=== PATIENT | male | born 1965 | race Caucasian/White ===

== ENCOUNTER → 2017-04-24 | Outpatient (CLI) | payer OTHER ==
--- NOTE | 2017-04-24 08:13 | CT ---
EXAMINATION TYPE: CT abdomen pelvis w con DATE OF EXAM: 04/24/2017 7:24 AM COMPARISON: NONE HISTORY: Abdominal or pelvic mass CT DLP: 1567 mGycm CONTRAST: CT scan of the abdomen and pelvis is performed with Oral Contrast and with IV Contrast, patient injec rosalee with 100 ml mL of Omnipaque 300. FINDINGS: LUNG BASES-: No visible nodule. No infiltrate. Mild cardiomegaly. Small sliding-type hiatal hernia. LIVER/GB: No calcified gallstones. 1.4 cm cyst adjacent to the gallbladder fossa. Biliary tree is o f normal caliber. PANCREAS: No inflammation. No distinct mass. SPLEEN: No splenic enlargement. No lesion seen. ADRENALS: No nodule. No thickening. KIDNEYS/BLADDER: No hydronephrosis. No nephrolithiasis. No disctinct renal mass. Urinary bladder g rossly unremarkable. BOWEL: Nonvisualization of the appendix. Normal bowel caliber. No inflammation. GENITAL ORGANS: No gross abnormality. LYMPH NODES: No greater than 1cm abdominal or pelvic lymph nodes are appreciated. AORTA: No significant abnormality. OSSEOUS STRUCTURES: Degenerative changes seen throughout the thoracolumbar spine. OTHER: No significant additional abnormality is seen. IMPRESSION: 1. No evidence for abdominopelvic mass. 2. Small hepatic cysts. 3. Small hiatal hernia.
== END | disposition home or self-care (01) ==
LOC: RADCTMAIN 06:54
PROVIDERS: ATTEND Nurse Practitioner Women's Health
DX: K76.89 Other specified diseases of liver (principal); K44.9 Diaphragmatic hernia without obstruction or gangrene; R10.84 Generalized abdominal pain
CPT/HCPCS: 74177; Q9967

== ENCOUNTER → 2017-06-09 | Outpatient (CLI) | payer OTHER | END | disposition home or self-care (01) | LOC: LABPAT 10:22 | PROVIDERS: ATTEND Anesthesiology | DX: Z01.810 Encounter for preprocedural cardiovascular examination (principal); K42.9 Umbilical hernia without obstruction or gangrene; K43.2 Incisional hernia without obstruction or gangrene | CPT/HCPCS: 93005 ==

== ENCOUNTER 2017-06-11 09:25 | Day surgery (SDC) | payer OTHER ==
[2017-06-06 17:22] VITALS: BMI 30.1
[~2017-06-11 09:25] MED LIST: DEXAMETHASONE SOD PHOSPHATE 10 MG/ML 1 ML VIAL IV ONE; HEPARIN SODIUM,PORCINE 5,000 UNIT/ML 1 ML VIAL SQ ONE; LACTATED RINGERS 1,000 ML IV SCH; MIDAZOLAM 2 MG/2 ML VIAL IV PRN; ONDANSETRON 4 MG/2 ML VIAL IVP ONE; SCOPOLAMINE 1.5MG/72HR PATCH TRANSDERM ONE; ceFAZolin 2 GM in SODIUM CHLORIDE 0.9% 100 ML IVPB ONE
[2017-06-11] MEDS ORDERED: LIDOCAINE 1% 20 ML VIAL (10MG/ML) FOR IV START INTRADERMA ONE (10:27)
--- NOTE | 2017-06-11 11:11 | P.GSHP ---
History of Present Illness H&P Date: 06/11/17 Chief Complaint: Right lower quadrant Incisional and umbilical hernia This a 52-year-old male who presents today for laparoscopic robotic-assisted repair of a right lower quadrant incisional hernia and umbilical hernia. Patient is a previous history of open appendectomy. He is also a small incisional hernia at his appendectomy scar. He also has a small umbilical hernia. Past Medical History Additional Past Medical History / Comment(s): ALLERGIES. HAS INC AND UMBILICAL HERNIAS. VARICOSE VEINS. History of Any Multi-Drug Resistant Organisms: None Reported Past Surgical History: Appendectomy, Orthopedic Surgery Additional Past Surgical History / Comment(s): RT SHOULDER SURG. COLONOSCOPY. Past Anesthesia/Blood Transfusion Reactions: No Reported Reaction Smoking Status: Current every day smoker - Past Family History Mother Family Medical History: Cancer Brother(s) Family Medical History: Cancer Medications and Allergies Home Medications Medication Instructions Recorded Confirmed Type Acetaminophen [Tylenol Extra 1,000 mg PO Q4-6H PRN 06/06/17 06/11/17 History Strength] Cetirizine HCl [Zyrtec] 10 mg PO DAILY PRN 06/06/17 06/06/17 History Allergies Allergy/AdvReac Type Severity Reaction Status Date / Time Sulfa (Sulfonamide Allergy Rash/Hives Verified 06/06/17 16:55 Antibiotics) VICRYL SUTURES Allergy INCISION Uncoded 06/09/17 12:36 FORMED WHITE CYSTS Surgical - Exam Vital Signs Temp Pulse Resp BP Pulse Ox 98 F 74 18 126/79 96 06/11/17 10:12 06/11/17 10:12 06/11/17 10:12 06/11/17 10:12 06/11/17 10:12 - General well developed, no distress - Eyes PERRL - ENT normal pinna - Neck no masses - Respiratory normal expansion - Cardiovascular Rhythm: regular - Abdomen Right lower quadrant incisional hernia measuring approximately 3 cm diameter., Small reducible umbilical hernia Abdomen: soft, non tender Assessment and Plan Plan: Incisional hernia right lower quadrant, local hernia we'll perform laparoscopic robotic-assisted repair.
[2017-06-11] MEDS ORDERED: LIDOCAINE 1%-EPI 1:100,000 20 ML VIAL SQ ONE ×2 (11:40→11:59)
[2017-06-11] MEDS ORDERED: ROCURONIUM BROMIDE 10 MG/ML 10 ML VIAL IV ONE (11:41)
[2017-06-11] MEDS ORDERED: fentaNYL (PF) 50 MCG/ML 2 ML AMP ONE (11:41)
[2017-06-11] MEDS ORDERED: GLYCOPYRROLATE 0.2 MG/ML 2 ML VIAL ONE (11:41)
[2017-06-11] MEDS ORDERED: SUCCINYLCHOLINE CHLORIDE 100 MG/5 ML SYR IV ONE (11:41)
[2017-06-11] MEDS ORDERED: HYDROmorphone (PF) 1 MG/ML ONE (11:41)
[2017-06-11] MEDS ORDERED: NEOSTIGMINE 1 MG/ML 10 ML VIAL ONE (11:41)
[2017-06-11] MEDS ORDERED: KETOROLAC 30 MG/ML 1 ML VIAL ONE (11:41)
[2017-06-11] MEDS ORDERED: MIDAZOLAM 2 MG/2 ML VIAL ONE (11:41)
[2017-06-11] MEDS ORDERED: PROPOFOL 10 MG/ML 20 ML VIAL IV ONE (11:41)
[2017-06-11] MEDS ORDERED: LIDOCAINE 1% INJ 10MG/ML (20 ML MDV) ONE (11:41)
[2017-06-11] MEDS ORDERED: ePHEDrine 50 MG/ML 1 ML AMP ONE (11:41)
[2017-06-11] MEDS ORDERED: PHENYLEPHRINE-0.9% NACL SYG 1 MG/10 ML SYRINGE ONE (11:41)
[2017-06-11] MEDS ORDERED: LACTATED RINGERS 1,000 ML IV ONE (12:39)
[2017-06-11 13:16] VITALS: TEMP 97
[2017-06-11] MEDS: HYDROmorphone 1 MG/ML 1 ML SYRINGE IVP PRN ×2 (13:36→13:43)
[2017-06-11 14:03] VITALS: RESP 18
[2017-06-11] MEDS ORDERED: HYDROcodone/APAP 7.5-325MG 1 EACH TAB PO ONE (14:30)
--- NOTE | 2017-06-11 14:41 | P.OP ---
Date of Procedure: 06/11/17 Preoperative Diagnosis: Incisional hernia Umbilical hernia Postoperative Diagnosis: Incisional hernia Umbilical hernia Adhesions Procedure(s) Performed: Laparoscopic robotic system repair of umbilical hernia, incisional hernia and labs have place of adhesions. Implants: Anesthesia: RANJITA Surgeon: Enrique Petit Estimated Blood Loss (ml): 5 Pathology: none sent Condition: stable Disposition: PACU Indications for Procedure: Operative Findings: Description of Procedure: Patient's placed the operative table in the supine position. He received general anesthesia. His abdomen was then prepped and draped usual fashion. The patient had this umbilical hernia and a incisional hernia located right lower quadrant from previous appendectomy. The left upper quadrant presented with a 5 mm TROCAR under direct visitation in the abdomen was inflated after adequate insufflation the laparoscope was placed the peritoneal cavity. Next a robotic 8 over trochars placed left lower quadrant and a 1200 trocar was placed in left lateral position and the original 5 mm trocar was exchanged for an 8 mm robotic trocar. The patient was undocked the robot. The patient position in the left side up position. The adhesions over the right lower quadrant hernia were lysed using hook cautery and then the fascial repair was performed using OV lock suture. The incisional hernia repair was buttressed with Turkish light ST mesh. 1170 around mesh was secured with 2 OV lock suture. Next the umbilical hernia was visualized. The umbilical hernia was closed using OV lock suture. And then a ventral ST mesh was secured over top apparent secured with 2 OV lock suture. The patient was then undocked from the robot. The needles were retrieved. The fascia of the 12 mm trocar site was closed with 0 Ethibond suture. Skin was closed interrupted 3-0 Monocryl suture. Dermabond was applied. Patient top she will was sent to recovery in stable condition.
[2017-06-11 14:42] VITALS: BP 119/69; PULSE 95
== END 2017-06-11 15:32 | disposition home or self-care (01) ==
LOC: OR 09:25
PROVIDERS: ATTEND Surgery
DX: K43.2 Incisional hernia without obstruction or gangrene (principal); K42.9 Umbilical hernia without obstruction or gangrene; K66.0 Peritoneal adhesions (postprocedural) (postinfection); F17.200 Nicotine dependence, unspecified, uncomplicated; Z88.2 Allergy status to sulfonamides; Z88.8 Allergy status to other drugs, medicaments and biological substances
CPT/HCPCS: 49652; 49654; S2900; 36415; 86850; 86900; 86901

== ENCOUNTER 2022-05-03 09:32 | Day surgery (SDC) | payer OTHER ==
[2022-05-01 16:06] VITALS: BMI 33.0
[~2022-05-03 09:32] MED LIST changes: -DEXAMETHASONE SOD PHOSPHATE 10 MG/ML 1 ML VIAL IV ONE; -HEPARIN SODIUM,PORCINE 5,000 UNIT/ML 1 ML VIAL SQ ONE; -MIDAZOLAM 2 MG/2 ML VIAL IV PRN; -ONDANSETRON 4 MG/2 ML VIAL IVP ONE; -SCOPOLAMINE 1.5MG/72HR PATCH TRANSDERM ONE; -ceFAZolin 2 GM in SODIUM CHLORIDE 0.9% 100 ML IVPB ONE
[2022-05-03 09:51] VITALS: RESP 16; TEMP 96.7
[2022-05-03] MEDS ORDERED: PROPOFOL 10 MG/ML 20 ML VIAL IV ONE (10:49)
--- NOTE | 2022-05-03 11:13 | P.PCN ---
Date of Procedure: 05/03/22 Procedure(s) Performed: BRIEF HISTORY: Patient is a 57-year-old pleasant white male scheduled for an elective colonoscopy as a part of screening for colon cancer and family history of colon cancer in his brother Was diagnosed at age 60. PROCEDURE PERFORMED: Colonoscopy. PREOPERATIVE DIAGNOSIS: Screening for colon cancer and family history of colon cancer.. IV sedation per Anesthesia. PROCEDURE: After informed consent was obtained, the patient, was brought into the endoscopy unit. IV sedation was administered by Anesthesia under continuous monitoring. Digital rectal examination was normal. Initially the Olympus CF-160 flexible video colonoscope was then inserted in the rectum, gradually advanced into the cecum without any difficulty. Careful examination was performed as the scope was gradually being withdrawn. Ileocecal valve and the appendiceal orifice were visualized and appeared normal. Prep was excellent. Mucosa of the cecum, ascending colon, transverse colon, descending colon, sigmoid colon, and rectum appeared normal. Retroflexion was performed in the rectum and no lesions were seen. The patient tolerated the procedure well. IMPRESSION: Normal-appearing colon from rectum to cecum with no evidence of of colorectal neoplasia . RECOMMENDATIONS: Findings of this examination were discussed with the patient as well as his family. He was advised to have a repeat screening colonoscopy in 5 years from now because of the family history of colon cancer.
[2022-05-03 12:03] VITALS: BP 108/69; PULSE 72
== END 2022-05-03 12:24 ==
LOC: ORWHC2ENDO 09:32
PROVIDERS: ATTEND Internal Medicine Gastroenterology
DX: Z12.11 Encounter for screening for malignant neoplasm of colon (principal); Z80.0 Family history of malignant neoplasm of digestive organs; K21.9 Gastro-esophageal reflux disease without esophagitis; Z87.891 Personal history of nicotine dependence; Z79.899 Other long term (current) drug therapy; Z88.2 Allergy status to sulfonamides; Z90.49 Acquired absence of other specified parts of digestive tract; Z98.890 Other specified postprocedural states
CPT/HCPCS: J2704; G0105

== ENCOUNTER → 2023-02-13 | Outpatient (CLI) | payer OTHER ==
[2023-02-13 08:14] VITALS: BP 142/86; PULSE 86; RESP 18; TEMP 98
--- NOTE | 2023-02-13 15:49 | P.PAINPG ---
PQRS Measure Charge Sheet Comment: HISTORY OF PRESENT ILLNESS: 57 yr old male as a referral from Dr Guevara presents today w severe and chronic LBP secondary to stenosis, DDD, spondylosis and facet arthropathy without myelopathy for evaluation. Pt states pain level is at 7 /10 in intensity, constant, localized in the lower lumbar spine, sharp, stabbing in character w shooting pain towards the BLEs, R>L. Pain is provoked by bending, twisting, standing/ walking for periods of 25 min or more. Pain is alleviated by medications, topicals, slightly by injections in the past, PT in 2019 which was ineffective, home stretching regimen in the mornings as tolerated, hot baths, repositioning and rest. PMH: Varicosities, OA PSH: Colonoscopy (2021), R Shoulder Surgery, LESIs SH: Daily tobacco use, No ETOH abuse, No illicit drug use FH: Mo- CA. Bro- CA All: See list Meds: See list REVIEW OF ORGAN SYSTEMS: CONSTITUTIONAL: No fevers or chills. No recent weight loss. NEUROLOGICAL: + numbness and tingling along the distal extremities. No seizure disorders or headaches. MUSCULOSKELETAL: + pain PSYCHIATRIC: Denies current depression or suicidal thoughts. Physical Examinations : Constitutional : Cooperative , not in acute distress . Neurologic : Cranial nerve II to XII intact. No focal neurological deficits. Psychiatric : alert & oriented x 3. Matching mood & appropriate affect. Judgment & insight intact. Musculoskeletal : Cervical Spine Motor strength in the deltoid and biceps: Normal right side. Normal Left side Motor strength biceps and the wrist extensors: Normal right side . Normal left side Motor strength in the triceps muscle: Normal right side. Normal left side Deep tendon reflexes: Normal at the biceps. Normal at Brachioradialis. Normal at triceps Vertebral body tenderness to deep palpation over Cervical facet loading test: positive bilaterally Spurling test: positive bilaterally Neck distraction test: positive bilaterally Kan sign: positive bilaterally Lumbar spine Motor strength lower extremities ,thigh and legs 5/5 Right side , 5/5 Left side Deep tendon reflexes : Normal Knee Jerk. Normal Ankle Jerk Vertebral body tenderness over L4 Lumbar facet Loading Test: positive Right / positive Left Range of motion of the lumbar spine Flexion 30 degrees, extension 10 degrees Straight Leg Raise test: Left/ Right positive at degree Diana test: positive right / positive left. Severe tenderness over the Sacroiliac joint on the Right / Left sides Oneidalen test: positive bilaterally Seated flexion test: positive bilaterally. Sacral spine : Severe tenderness over the Sacroiliac joint: right side / left side Range of motion: Flexion of the lumbar spine <60 degrees Range of motion: Extension of the lumbar spine <20 degrees Gaenslen's Test positive Gaston's Test positive Diana test: positive right side / left side Thigh Thrust Test Sacral Thrust Test Imaging: MRI without contrast of the lumbar spine from 01/16/23 reviewed Assessment/ Plan : Lumbar DDD, lumbar disc bulges, lumbar stenosis Recommendation of BL TFESI L4-L5 #1. May need a series of injections, up ton 3 within a 6 mo period, for optimal pain relief. Risks, benefits of procedure discussed and patient verbalized understanding. Admits to aspirin or anti- coagulant use or medical history of diabetes. Protocol for discontinuation/ continuation of medications shimon procedure discussed. All questions answered. I have spent greater than 30 minutes on patient care today. Dr Buckley was available by phone for the evaluation of this patient. The time was used to review the medical records including relevant urine studies and Prescription history (MAPs), review of the available imaging, evaluation and examination of the patient, coordination of care with the medical staff and if applicable referring physicians, as well as creation of the medical record PQRS Narrative: Smoking Status Current every day smoker Home Medications: Ambulatory Orders Cetirizine HCl [Zyrtec] 10 mg PO DAILY PRN 06/06/17 Controlled Substance Measures - Controlled Substance Measures Is patient prescribed a controlled substance at discharge?: No
== END ==
LOC: PNWHC3 07:25
PROVIDERS: ATTEND Specialist
DX: M48.07 Spinal stenosis, lumbosacral region (principal); M19.90 Unspecified osteoarthritis, unspecified site; M47.816 Spondylosis without myelopathy or radiculopathy, lumbar region; M48.061 Spinal stenosis, lumbar region without neurogenic claudication; M51.36 Other intervertebral disc degeneration, lumbar region; M51.26 Other intervertebral disc displacement, lumbar region; F17.200 Nicotine dependence, unspecified, uncomplicated; Z88.2 Allergy status to sulfonamides; Z91.048 Other nonmedicinal substance allergy status
CPT/HCPCS: 99211

== ENCOUNTER 2023-03-20 09:06 | Day surgery (SDC) | payer OTHER ==
[~2023-03-20 09:06] MED LIST changes: +LIDOCAINE 1% (10MG/ML) FOR IV START INTRADERMA PRN
[2023-03-20 09:39] VITALS: RESP 16; TEMP 97.3
[2023-03-20] MEDS ORDERED: methylPREDNISolone ACETATE 80 MG/ML 1 ML VIAL ONE (10:00)
[2023-03-20] MEDS ORDERED: MIDAZOLAM 2 MG/2 ML VIAL ONE (10:00)
[2023-03-20] MEDS ORDERED: IOPAMIDOL M200 10 ML VIAL ONE (10:00)
[2023-03-20] MEDS ORDERED: fentaNYL (PF) 50 MCG/ML 2 ML AMP ONE (10:00)
--- NOTE | 2023-03-20 10:20 | P.PCN ---
Date of Procedure: 03/20/23 Procedure(s) Performed: PREOPERATIVE DIAGNOSIS: 1-Lumbar radiculopathy . 2-lumbar spinal stenosis 3- lumbar spondylosis with lumbar facet arthropathy without myelopathy POSTOPERATIVE DIAGNOSIS: 1-lumbar radiculopathy. 2-lumbar spinal stenosis 3- lumbar spondylosis with facet arthropathy without myelopathy PROCEDURE 1. Transforaminal epidural steroid injection under fluoroscopic guidance at bilateral L4-5 level. (Fluoroscopy images stored on file in the radiology Department ) 2. Lumbar epidurogram . ANESTHESIA: Local with 1% lidocaine 3 ml , moderate sedation with intravenous Versed 2 mg and fentanyle 100 micrograms. Sedation start time : 1005 . Sedation. stop time : 1017 . EBL: Minimal PROCEDURE INDICATION: The patient with low back pain and radiculopathy symptoms unresponsive to conservative treatment. PROCEDURE DESCRIPTION / TECHNIQUE: The patient was seen and identified in the preoperative area. Risks, benefits, complications, and alternatives were discussed with the patient. The patient agreed to proceed with the procedure and signed the consent. IV was started, and vital signs were stable. Patient was taken to the OR and time out was completed. The patient was placed in the prone position on procedure table and a pillow was placed under the abdomen to reduce lumbar lordosis. The lumbosacral area was prepped and draped in the usual sterile fashion. Critical pause was taken. Vital signs were closely monitored during the procedure. Conscious sedation was used during the procedure to decrease patient s anxiety. Using oblique fluoroscopy, the chin of the `Chiragy dog at right L4-5 level was identified, and the skin and deeper tissues just below was localized with 1% lidocaine. Subsequently, a 22-gauge 3.5-inch spinal needle was advanced under a tunneled view fluoroscopic guidance just underneath the chin of the `Chiragy dog at the right L4-5 Under lateral fluoroscopy, the needle was then advanced to the posterior border of the interforaminal space. After negative aspiration of CSF and blood and with no paresthesias, 1 mL Isovue 200 contrast dye was injected excellent epidurogram and outlining of the nerve root Subsequently, 3 mL of block solution containing 40 mg Depo-Medrol and 2 mL of 0.9% normal saline PF was injected. Needle was removed and the same procedure was repeated at the left L4-5 level. At the end of the procedure, skin was cleansed, and bandages were applied. COMPLICATIONS:none DISPOSITION / PLANS: The patient was placed in a supine position and transferred to the recovery area in a stable condition for observation. There was no evidence of lower extremity motor or sensory deficit after the procedure. Patient was discharged from the recovery room after meeting discharge criteria. Home discharge instructions were given to the patient by the staff. The patient was reexamined prior to discharge.
[2023-03-20] MEDS ORDERED: IV FLUID CONTINUATION 700 ML IV ONE (10:21)
--- NOTE | 2023-03-20 10:27 | FL ---
Intraoperative/procedural fluoroscopic services were provided for transforaminal lumbar epidural ster oid injection. Total fluoroscopy time is 8 seconds with a total of 2 submitted images to PACS. Total DAP [id number]. Please see the operative note for further details.
[2023-03-20 10:41] VITALS: BP 131/83; PULSE 81
== END 2023-03-20 10:52 | disposition home or self-care (01) ==
LOC: ORPAIN 09:06
PROVIDERS: ATTEND Specialist
DX: M47.26 Other spondylosis with radiculopathy, lumbar region (principal); M48.061 Spinal stenosis, lumbar region without neurogenic claudication; Z88.2 Allergy status to sulfonamides; Z88.8 Allergy status to other drugs, medicaments and biological substances; Z79.82 Long term (current) use of aspirin
CPT/HCPCS: 64483; 99152; J2250; J1040; J3010; Q9966

== ENCOUNTER → 2023-04-14 | Outpatient (CLI) | payer OTHER ==
[2023-04-14 07:58] VITALS: BP 125/85; PULSE 78; RESP 18; TEMP 98
--- NOTE | 2023-04-14 13:31 | P.PAINPG ---
PQRS Measure Charge Sheet Comment: A 58 yr old female with a history of severe and chronic LBP x 15 yrs secondary to lumbar DDD and spondylosis with facet arthropathy without myelopathy presents today for evaluation s/p BL TFESI L4-L5. Pt states he experienced he 60% pain relief x 5 days s/p procedure. Pain level is provoked at 7/10 in intensity, constant, localized in the lumbar spine, stabbing in character w shooting towards the LLE> R. Pain is provoked by climbing. Pain is alleviated with PT 4 yrs ago, use of a massage gun at home, heat, medications, topical, reclining, repositioning and rest. Interventional pain procedures completed include BL TFESI L4-5 Patient is currently on Tyl, Ibu, Salon Pas patches Patient denies any side effects of the medication(s), denies excessive drowsiness or sleepiness, denies suicidal ideation and reports that the current pain medication is helping to control the pain and improve activities of daily living. Patient denies any motor or sensory deficits. Patient denies any fever or night sweats, denies any change in the bowel movements or urination. Physical Examination: -Constitutional: Cooperative. Not in acute distress . - Neurologic: Cranial nerve II to XII intact. No focal neurological deficits. - Psychatric: Alert & oriented x 3. Matching mood & appropriate affect. Judgment and insight intact. - Musculoskeletal: Cervical spine: Muscle bulk/ tone/ strength in the bilateral upper extremities normal Vertebral body tenderness to palpation over Spurling test positive Distraction test positive Facet loading test positive TTP Thoracic spine Muscle bulk / tone/ strength in the bilateral paraspinal muscles normal Vertebral body tender to palpation over Facet loading test positive TTP Lumbar spine: Motor bulk/ tone/ strength lower extremities , thigh and legs : 5/5 Deep tendon reflexes : Normal Knee Jerk. Normal Ankle Jerk . Vertebral body tenderness to palpation over L4 Lumbar Facet Loading Test positive Straight Leg Raise: positive at 30 degrees right side/ left side Gaenslen's Test positive Sacral spine : Severe tenderness over the Sacroiliac joint: right side / left side Range of motion: Flexion of the lumbar spine <60 degrees Range of motion: Extension of the lumbar spine <20 degrees Gaenslen's Test positive right side / left side Diana test: positive right side / left side Thigh Thrust Test positive right side / left side Sacral Thrust Test positive right side / left side Assessment and plan: Chronic LBP secondary to lumbar DDD, spondylosis with facet arthropathy without myelopathy Recommendation of DARBY L4-L5. May need a s series of injections, up to 3 within a 6 mo period, for optimal pain relief. Risks, benefits of procedure discussed and pt verbalized understanding. Admits to anticoagulant use or medical history of diabetes. Protocol for discontinuation/ continuation of medications shimon procedure discussed. All questions answered. I have spent less than 30 minutes on patient care today. Dr Buckley was available by phone for the evaluation of this patient. The time was used to review the medical records including relevant urine studies and Prescription history (MAPs), review of the available imaging, evaluation and examination of the patient, coordination of care with the medical staff and if applicable referring physicians, as well as creation of the medical record PQRS Narrative: Smoking Status Current every day smoker Hx Alcohol Use (MH) Yes: 2 PER DAY Home Medications: Ambulatory Orders Cetirizine HCl [Zyrtec] 10 mg PO DAILY PRN 06/06/17 Ibuprofen [Motrin Ib] 400 mg PO Q6H PRN 03/18/23 Controlled Substance Measures - Controlled Substance Measures Is patient prescribed a controlled substance at discharge?: No
== END ==
LOC: PNWHC3 07:20
PROVIDERS: ATTEND Specialist
DX: M51.36 Other intervertebral disc degeneration, lumbar region (principal); M47.816 Spondylosis without myelopathy or radiculopathy, lumbar region; G89.29 Other chronic pain; F17.200 Nicotine dependence, unspecified, uncomplicated; Z72.89 Other problems related to lifestyle; Z88.2 Allergy status to sulfonamides; Z91.048 Other nonmedicinal substance allergy status
CPT/HCPCS: 99211

== ENCOUNTER → 2023-05-22 | Outpatient (CLI) | payer OTHER ==
[2023-05-22 08:46] VITALS: BP 145/87; PULSE 74; RESP 18; TEMP 98.2
--- NOTE | 2023-05-22 14:59 | P.PAINPG ---
PQRS Measure Charge Sheet Comment: A 58 yr old female with a history of severe and chronic LBP x 15 yrs secondary to lumbar DDD and spondylosis with facet arthropathy without myelopathy presents today for LBP. Pain level is provoked at 7/10 in intensity, constant, localized in the R lumbar spine, achy in character w shooting towards the LLE> R. Pain is provoked by climbing. Pain is alleviated with PT 4 yrs ago, physician guided home stretching daily for the last 4 yrs, use of a massage gun at home, heat, medications, topical, reclining, repositioning and rest. Interventional pain procedures completed include BL TFESI L4-L5 x1 Patient is currently on Tyl, Ibu, Salon Pas patches Patient denies any side effects of the medication(s), denies excessive drowsiness or sleepiness, denies suicidal ideation and reports that the current pain medication is helping to control the pain and improve activities of daily living. Patient denies any motor or sensory deficits. Patient denies any fever or night sweats, denies any change in the bowel movements or urination. Physical Examination: -Constitutional: Cooperative. Not in acute distress . - Neurologic: Cranial nerve II to XII intact. No focal neurological deficits. - Psychatric: Alert & oriented x 3. Matching mood & appropriate affect. Judgment and insight intact. - Musculoskeletal: Cervical spine: Muscle bulk/ tone/ strength in the bilateral upper extremities normal Vertebral body tenderness to palpation over Spurling test positive Distraction test positive Facet loading test positive TTP Thoracic spine Muscle bulk / tone/ strength in the bilateral paraspinal muscles normal Vertebral body tender to palpation over Facet loading test positive TTP Lumbar spine: Motor bulk/ tone/ strength lower extremities , thigh and legs : 5/5 Deep tendon reflexes : Normal Knee Jerk. Normal Ankle Jerk . Vertebral body tenderness to palpation over Diehl Test positive R T12 - L5 Taut bands w twitch response Lumbar Facet Loading Test positive Straight Leg Raise: positive at 30 degrees right side/ left side Gaenslen's Test positive Sacral spine : Severe tenderness over the Sacroiliac joint: right side / left side Range of motion: Flexion of the lumbar spine <60 degrees Range of motion: Extension of the lumbar spine <20 degrees Gaenslen's Test positive right side / left side Diana test: positive right side / left side Thigh Thrust Test positive right side / left side Sacral Thrust Test positive right side / left side Assessment and plan: Chronic LBP secondary to lumbar DDD, spondylosis with facet arthropathy without myelopathy Recommendation of R TPIs T12-L5. May need a series of injections for optimal pain relief. Risks, benefits of procedure discussed and pt verbalized understanding. Admits to anticoagulant use or medical history of diabetes. Protocol for discontinuation/ continuation of medications shimon procedure discussed. Minimal anesthesia provided, if clinically indicated, consisting of Versed and Fentanyl. All questions answered. I have spent less than 30 minutes on patient care today. Dr Buckley was available by phone for the evaluation of this patient. The time was used to review the medical records including relevant urine studies and Prescription history (MAPs), review of the available imaging, evaluation and examination of the patient, coordination of care with the medical staff and if applicable referring physicians, as well as creation of the medical record PQRS Narrative: Smoking Status Current every day smoker Hx Alcohol Use (MH) Yes: 2 PER DAY Home Medications: Ambulatory Orders Cetirizine HCl [Zyrtec] 10 mg PO DAILY PRN 06/06/17 Ibuprofen [Motrin Ib] 400 mg PO Q6H PRN 03/18/23 Controlled Substance Measures - Controlled Substance Measures Is patient prescribed a controlled substance at discharge?: No
== END ==
LOC: PNWHC3 08:12
PROVIDERS: ATTEND Specialist
DX: M51.35 Other intervertebral disc degeneration, thoracolumbar region (principal); M47.815 Spondylosis without myelopathy or radiculopathy, thoracolumbar region; G89.29 Other chronic pain; F17.200 Nicotine dependence, unspecified, uncomplicated; Z88.2 Allergy status to sulfonamides; Z91.09 Other allergy status, other than to drugs and biological substances
CPT/HCPCS: 99211

== ENCOUNTER 2023-06-24 08:29 | Day surgery (SDC) | payer OTHER ==
[2023-06-23 09:16] VITALS: BMI 33.3
[~2023-06-24 08:29] MED LIST changes: -LIDOCAINE 1% (10MG/ML) FOR IV START INTRADERMA PRN
[2023-06-24 08:54] VITALS: TEMP 97.4
[2023-06-24] MEDS ORDERED: methylPREDNISolone ACETATE 80 MG/ML 1 ML VIAL ONE (09:03)
[2023-06-24] MEDS ORDERED: ROPIVACAINE 5 MG/ML 20 ML AMPULE ONE (09:03)
--- NOTE | 2023-06-24 09:09 | P.PCN ---
Date of Procedure: 06/24/23 Procedure(s) Performed: Procedure= trigger point injections lumbar paraspinal muscles bilaterally , 6 on the right side from T12 to L5, Preoperative diagnosis= 1-myofascial pain syndrome lumbar paraspinal muscles 2-lumbar degenerative disc disease 3-lumbar facet arthropathy Postoperative diagnosis=Same as preop Diagnosis . Complication = none Condition= stable Anesthesia= Indication for the procedure= patient complaining of low back pain , examination was positive for multiple trigger point in the lumbar paraspinal muscles right side , and patient diagnosed with myofascial pain syndrome and is here to have trigger point injections Description of the procedure= procedure risk and benefits discussed with the patient, including but not limited, risk of infection and bleeding, and ALLERGIC reaction to the medication and not complete pain relief and patient agreed with the preceding patient taken to the operating room, placed in sitting position or standard monitors applied to the patient then after induction of anesthesia back prepped with chlorhexidine 3 times , then under sterile technique each of the trigger point that was marked in the preop holding area 6 on the right side lumbar paraspinal muscles each one of them injected with the 2 mL of the mixture of ropivacaine 0.5% 12 ML mixed with 80 mg of Depo-Medrol and 2 mL of the mixture injected at each trigger point after negative aspiration, using 25-gauge needle, injection done after negative aspiration under was no paresthesia during the injection patient tolerated the procedure well without any complications and he will follow up in the pain clinic in a few weeks
[2023-06-24 09:11] VITALS: BP 149/77; PULSE 73; RESP 18
== END 2023-06-24 09:34 | disposition home or self-care (01) ==
LOC: ORPAIN 08:29
PROVIDERS: ATTEND Specialist
DX: M79.18 Myalgia, other site (principal); M51.36 Other intervertebral disc degeneration, lumbar region; M47.816 Spondylosis without myelopathy or radiculopathy, lumbar region; Z88.2 Allergy status to sulfonamides
CPT/HCPCS: 20553; J1040; J2795

== ENCOUNTER → 2023-08-13 | Outpatient (CLI) | payer OTHER ==
[2023-08-13 11:45] VITALS: BP 136/87; PULSE 71; RESP 16; TEMP 98.2
--- NOTE | 2023-08-14 16:48 | P.PAINPG ---
PQRS Measure Charge Sheet Comment: A 58 yr old female with a history of severe and chronic LBP x 15 yrs secondary to lumbar DDD and spondylosis with facet arthropathy without myelopathy presents today for evaluation s/p BL lumbar TPIs. Pt states he experienced 0% relief s/p procedure. Pain level is provoked at 7/10 in intensity, constant, localized in the R lumbar spine, achy in character w shooting towards the LLE> R. Pain is provoked by climbing. Pain is alleviated with PT 4 yrs ago, physician guided home stretching daily for the last 4 yrs, use of a massage gun at home, heat, medications, topical, reclining, repositioning and rest. Oswestry axial pain score of 18. Interventional pain procedures completed include BL TFESI L4-L5 x1 Patient is currently on Tyl, Ibu, Salon Pas patches Patient denies any side effects of the medication(s), denies excessive drowsiness or sleepiness, denies suicidal ideation and reports that the current pain medication is helping to control the pain and improve activities of daily living. Patient denies any motor or sensory deficits. Patient denies any fever or night sweats, denies any change in the bowel movements or urination. Physical Examination: -Constitutional: Cooperative. Not in acute distress . - Neurologic: Cranial nerve II to XII intact. No focal neurological deficits. - Psychatric: Alert & oriented x 3. Matching mood & appropriate affect. Judgment and insight intact. - Musculoskeletal: Cervical spine: Muscle bulk/ tone/ strength in the bilateral upper extremities normal Vertebral body tenderness to palpation over Spurling test positive Distraction test positive Facet loading test positive TTP Thoracic spine Muscle bulk / tone/ strength in the bilateral paraspinal muscles normal Vertebral body tender to palpation over Facet loading test positive TTP Lumbar spine: Motor bulk/ tone/ strength lower extremities , thigh and legs : 5/5 Deep tendon reflexes : Normal Knee Jerk. Normal Ankle Jerk . Vertebral body tenderness to palpation over Diehl Test positive R T12 - L5 Taut bands w twitch response Lumbar Facet Loading Test positive Straight Leg Raise: positive at 30 degrees right side/ left side Gaenslen's Test positive Sacral spine : Severe tenderness over the Sacroiliac joint: right side / left side Range of motion: Flexion of the lumbar spine <60 degrees Range of motion: Extension of the lumbar spine <20 degrees Gaenslen's Test positive right side / left side Diana test: positive right side / left side Thigh Thrust Test positive right side / left side Sacral Thrust Test positive right side / left side Assessment and plan: Chronic LBP secondary to lumbar DDD, spondylosis with facet arthropathy without myelopathy Pt will follow up w his orthopedic surgeon to explore additional treatment options. All questions answered. I have spent less than 30 minutes on patient care today. Dr Buckley was available by phone for the evaluation of this patient. The time was used to review the medical records including relevant urine studies and Prescription history (MAPs), review of the available imaging, evaluation and examination of the patient, coordination of care with the medical staff and if applicable referring physicians, as well as creation of the medical record PQRS Narrative: Smoking Status Current every day smoker Hx Alcohol Use (MH) Yes: 2 PER DAY Home Medications: Ambulatory Orders Cetirizine HCl [Zyrtec] 10 mg PO DAILY PRN 06/06/17 Ibuprofen [Motrin Ib] 400 mg PO Q6H PRN 03/18/23 Controlled Substance Measures - Controlled Substance Measures Is patient prescribed a controlled substance at discharge?: No
== END ==
LOC: PNWHC3 08:37
PROVIDERS: ATTEND Specialist
DX: M51.36 Other intervertebral disc degeneration, lumbar region (principal); M47.816 Spondylosis without myelopathy or radiculopathy, lumbar region; G89.29 Other chronic pain; F17.200 Nicotine dependence, unspecified, uncomplicated; Z79.01 Long term (current) use of anticoagulants; Z88.2 Allergy status to sulfonamides; Z91.048 Other nonmedicinal substance allergy status
CPT/HCPCS: 99211